=== PATIENT | female | born 1940 | race African-American/Black ===

== ENCOUNTER → 2018-08-21 | Outpatient (CLI) | payer OTHER, BC ==
--- NOTE | 2018-08-21 14:13 | 2DMMODE ---
[facility] [place] [address] 2 D/M-MODE ECHOCARDIOGRAM Name: SAIDA MELGAR Room [facility] [id number] Admission: 08/21/18 Attend Phys: Curt Ocasio MD Discharge: Date of : 44 Date of Service: 08/21/18 1413 Report #: [id number] THIS REPORT FOR: //name// APPROVED REPORT Study performed: 08/21/2018 13:25:21 EXAM: Comprehensive 2D, Doppler, and color-flow Echocardiogram Patient Location: Out-Patient Status: routine BSA: 1.85 HR: 76 bpm BP: 126/78 mmHg Rhythm: Atrial Fibrillation Other Information Study Quality: Good Indications Short of breath, edema. 2D Dimensions IVSd: 12.43 (7-11mm) LVOT Diam: 20.42 (18-24mm) LVDd: 41.51 mm PWd: 11.80 (7-11mm) Ascending Ao: 34.85 (22-36mm) LVDs: 26.50 (25-40mm) Aortic Root: 32.20 mm Volumes Left Atrial Volume (Systole) Single Plane 4CH: 88.15 mL Single Plane 2CH: 88.03 mL LA ESV Index: 51.00 mL/m2 Aortic Valve AoV Peak Wilner.: 1.98 m/s AO Peak Gr.: 15.64 mmHg LVOT Max P.39 mmHg LVOT Max V: 1.61 m/s KYLE Vmax: 2.67 cm2 Mitral Valve MV Decel. Time: 179.56 ms MV E Max Wilner.: 1.37 m/s Pulmonary Valve PV Peak Wilner.: 1.14 m/s PV Peak Gr.: 5.18 mmHg [facility] [email or web address] [address] 2 D/M-MODE ECHOCARDIOGRAM Name: SAIDA MELGAR Room [facility]: [facility]#: [id number] Admission: 08/21/18 Attend Phys: Curt Ocasio MD Discharge: Date of : 44 Date of Service: 08/21/18 1413 Report #: [id number] Tricuspid Valve TR Peak Wilner.: 4.91 m/s RAP Estimate: 15.00 mmHg TR Peak Gr.: 96.44 mmHg PA Pressure: 111.00 mmHg Left Ventricle The left ventricle is normal size. There is normal LV segmental wall motion. Mild concentric left ventricular hypertrophy. Left ventricular systolic function is normal. LVEF is 55-60%. This study is not technically sufficient to allow evaluation of the LV diastolic function due to atrial fibrillation. Right Ventricle Right ventricle is dilated. The right ventricular systolic function is low normal. Atria Left atrium is severely dilated. Right atrium is moderately dilated. Aortic Valve The Aortic valve is mildy sclerotic. Moderate aortic regurgitation. There is no aortic valvular stenosis. Mitral Valve Mitral valve leaflets are thickened. Moderate mitral regurgitation. No evidence of mitral valve stenosis. Tricuspid Valve The tricuspid valve is normal in structure. Severe tricuspid regurgitation. Severe pulmonary hypertension. Estimated PAP is 98mmHg. Pulmonic Valve The pulmonary valve is normal in structure. Mild to moderate pulmonic regurgitation. Great Vessels The aortic root is normal in size. The ascending aorta is normal in size. IVC is dilated and collapses <50% with inspiration. [facility] [place] [address] [place] [address] 2 D/M-MODE ECHOCARDIOGRAM Name: SAIDA MELGAR Room #: [facility].#: [id number] Admission: 08/21/18 Attend Phys: Curt Ocasio MD Discharge: Date of : 44 Date of Service: 08/21/181412 Report #: [id number] Pericardium There is no pericardial effusion. <Conclusion> The left ventricle is normal size. Mild concentric left ventricular hypertrophy. Left ventricular systolic function is normal. Right ventricle is dilated. Left atrium is severely dilated. Right atrium is moderately dilated. Moderate aortic regurgitation. Moderate mitral regurgitation. Severe tricuspid regurgitation. Severe pulmonary hypertension. Estimated PAP is 98mmHg. <ELECTRONICALLY SIGNED> By: Curt Ocasio MD 08/21/18 1413 12 1413 Curt Ocasio MD /INF
== END ==
LOC: OPONC 12:49
DX: I48.91 Unspecified atrial fibrillation (principal); R06.02 Shortness of breath; R06.00 Dyspnea, unspecified